=== PATIENT | female | born 1960 ===

== ENCOUNTER 2018-08-14 08:03 | Outpatient (CLI) | payer OTHER | END 2018-08-14 13:28 | disposition home or self-care (01) | LOC: SONOGRAMA 08:03 | DX: E04.2 Nontoxic multinodular goiter (principal) ==

== ENCOUNTER 2019-03-12 11:06 | Outpatient (CLI) | payer OTHER | END 2019-03-12 15:00 | disposition home or self-care (01) | LOC: LAB 11:06 | DX: M15.0 Primary generalized (osteo)arthritis (principal); M32.8 Other forms of systemic lupus erythematosus ==

== ENCOUNTER 2019-04-02 11:23 | Outpatient (CLI) | payer OTHER | END 2019-04-02 12:01 | disposition home or self-care (01) | LOC: LAB 11:23 | DX: N32.89 Other specified disorders of bladder (principal); M15.0 Primary generalized (osteo)arthritis; N13.39 Other hydronephrosis; M35.09 Sjogren syndrome with other organ involvement; N34.0 Urethral abscess; E03.8 Other specified hypothyroidism ==

== ENCOUNTER → 2023-10-07 10:12 | Outpatient (CLI) | payer OTHER ==
[2023-10-07 10:31] LABS: PH,URINE 5.5 (5.0-8.0); URINE APPEARANCE Clear; URINE BILIRRUBIN Negative (NEGATIVE); URINE BLOOD Negative; URINE COLOR Yellow; URINE GLUCOSE Negative (NEGATIVE); URINE LEUKOCYTE Trace; URINE NITRATE Negative; URINE PROTEIN Negative (NEGATIVE); URINE UROBILINOGEN 0.2 E.U./dl
[2023-10-07 10:36] LABS: URINE BACTERIA 477.4 uL (0.0-1933); URINE EPITHELIAL CELLS 26.8 uL (0.0-38.8); URINE RBC 2.5 uL (0.0-20.8); URINE WBC 14.8 uL (0.0-23.2)
[2023-10-07 10:40] LABS: HEMATOCRIT 38.9 % (36.0-45.00); HEMOGLOBIN 12.8 g/dL (12.0-15.00); MEAN CELL VOLUME 83.4 fL (80.00-100.00); MEAN CORPUSCULAR HEMOGLOBIN 27.5 pg (27.00-32.0); PLATELET COUNT 174 K/uL (150-450); RED BLOOD COUNT 4.66 M/uL (4.00-6.00)
[2023-10-07 11:33] LABS: ALBUMIN 3.7 gm/dL (3.4-5.0); BILIRUBIN TOTAL 0.51 mg/dL (0.3-1.2); CALCIUM 9.2 mg/dL (8.5-10.1); CHOL HDL RATIO 3.6 (0-5.0); CREATININE SERUM 0.77 mg/dL (0.55-1.02); GFR 76.21; GLOBULINA 3.6 G/DL (2.4-3.5); POTASSIUM 4.89 mEq/L (3.5-5.1); TOTAL PROTEIN 7.3 gm/dL (6.4-8.2); TSH 1.53 uIU/mL (0.358-3.74)
== END | disposition home or self-care (01) ==
LOC: LAB 09:06
PROVIDERS: ATTEND Internal Medicine
DX: E11.69 Type 2 diabetes mellitus with other specified complication (principal); E78.00 Pure hypercholesterolemia, unspecified; E03.8 Other specified hypothyroidism; N39.0 Urinary tract infection, site not specified; D50.0 Iron deficiency anemia secondary to blood loss (chronic)

== ENCOUNTER 2023-10-07 10:23 | Outpatient (CLI) | payer OTHER | END 2023-10-07 10:24 | disposition home or self-care (01) | LOC: NUCLEAR 10:23 | PROVIDERS: ATTEND Internal Medicine | DX: I73.9 Peripheral vascular disease, unspecified (principal) ==

== ENCOUNTER → 2023-10-07 | Outpatient (CLI) | payer OTHER | END | disposition home or self-care (01) | LOC: RAD 09:48 | PROVIDERS: ATTEND Internal Medicine | DX: M54.2 Cervicalgia (principal); M54.17 Radiculopathy, lumbosacral region | CPT/HCPCS: 72148 ==